=== PATIENT | male | born 1995 | race African-American/Black ===

== ENCOUNTER 2017-10-28 04:47 | Emergency (ER) | payer OTHER ==
[~2017-10-28] VITALS: Ht 170.2 cm; Wt 70.4 kg
[~2017-10-28 04:47] MED LIST: PROVENTIL HFA6.7 GM IH
[2017-10-28 06:14] LABS: CHLORIDE 108 mEq/L (99-109); POTASSIUM 3.5 mEq/L (3.7-5.4); SODIUM 143 mEq/L (136-147)
[2017-10-28 06:15] LABS: GLUCOSE 93 mg/dL (70-99); HEMATOCRIT 47.7 % (38.0-50.0); HEMOGLOBIN 16.1 G/DL (12.5-16.6); MCH 30.4 PG (29.0-34.0); MCHC 33.8 G/DL (30.0-36.0); MCV 90.2 FL (86-99); RBC DIS.WIDTH-SD 43.3 % (39-53); RED BLOOD COUNT 5.29 M/uL (4.00-5.50); WHITE BLOOD COUNT 5.6 K/uL (4.1-10.2)
[2017-10-28 06:19] LABS: GFR ESTIMATE (CALCULATED) > 59 mL/min/ (58.99-99999)
[2017-10-28 06:20] LABS: UREA NITROGEN (BUN) 12 mg/dL (9-23)
[2017-10-28] MEDS ORDERED: MAXALT MLT10 MG PO (06:58)
[2017-10-28 06:59] LABS: PLAT.SUFFICIENCY DECREASED; PLATELET COUNT 69 K/uL (156-360)
[2017-10-28 08:12] VITALS: BP 119/71
== END 2017-10-28 08:14 | disposition home or self-care (01) ==
LOC: EME 04:47
PROVIDERS: Emergency Medicine
DX: R51 Headache (principal); R11.2 Nausea with vomiting, unspecified; Z53.20 Procedure and treatment not carried out because of patient's decision for unspecified reasons
CPT/HCPCS: 70496; 80048; 85027; 99281; 99285; J0780; J1100; J1200; J3475; J7030